=== PATIENT | female | born 1985 | race Caucasian/White ===

== ENCOUNTER 2024-05-31 05:50 | Inpatient (IN) | payer OTHER ==
[2024-06-04] MEDS: DEXTROSE 5%-LACTATED RINGERS 1,000 ML IV SCH (08:45)
[2024-06-04] MEDS: CITRIC ACID/SODIUM CITRATE 30 ML UNIT-DOSE CUP PO ONE (09:10)
[2024-06-04 09:38] VITALS: BMI 26.5
[2024-06-04 10:09] LABS: BASO % 0.3 % (0-2.0); HEMATOCRIT 26.9 % (32.4-45.2); HEMOGLOBIN 8.5 GM/dL (10.7-15.3); MCH 24.3 pg (25.7-33.7); MCHC 31.5 g/dl (32.0-36.0); MEAN CELL VOLUME 77.3 fl (80-96); MEAN PLT VOLUME 8.3 fl (7.5-11.1); MONO % 6.8 % (3.8-10.2); NEUT % 71.9 % (42.8-82.8); PLATELET COUNT 249 10^3/uL (134-434); RBC 3.48 M/mm3 (3.60-5.2); RDW 17.9 % (11.6-15.6); WHITE BLOOD COUNT 8.5 K/mm3 (4.0-10.0)
[2024-06-04 10:27] LABS: INR 0.89 (0.83-1.09); PROTHROMBIN TIME (PATIENT) 10.1 SEC (9.7-13.0)
[2024-06-04 10:28] LABS: POTASSIUM 4.1 mmol/L (3.5-5.1)
[2024-06-04 10:29] LABS: CALCIUM 9.4 mg/dL (8.5-10.1)
[2024-06-04 10:30] LABS: ACTIVATED PTT 25.3 SECONDS (25.2-36.5); BLOOD UREA NITROGEN 6.7 mg/dL (7-18)
[2024-06-04 10:33] LABS: CREATININE 0.5 mg/dL (0.55-1.3)
[2024-06-04] MEDS ORDERED: ceFAZolin SODIUM 1 GM VIAL ONE (10:56)
[2024-06-04] MEDS ORDERED: ONDANSETRON 4 MG/2 ML VIAL ONE (10:57)
[2024-06-04] MEDS ORDERED: morphine SULFATE (PF) 1 MG/2 ML SYRINGE ONE (10:57)
[2024-06-04] MEDS ORDERED: KETOROLAC TROMETHAMINE 30 MG/1 ML VIAL ONE (10:57)
[2024-06-04] MEDS ORDERED: OXYTOCIN 10 UNITS/ML VIAL ONE (10:57)
[2024-06-04] MEDS ORDERED: FENTANYL CITRATE/PF 50 MCG/ML VIAL ONE (10:57)
[2024-06-04 12:28] LABS: CORD BASE EXCESS -1.7 mmol/L (0-2); CORD HCO3 24.6 mmHg (20-29); CORD PCO2 47.1 mmHg (30-78); CORD pH 7.335 (7.14-7.44)
[2024-06-04 12:29] LABS: CORD HCO3 21.1 mmHg (20-29); CORD PCO2 68.6 mmHg (30-78); CORD pH 7.105 (7.14-7.44)
[2024-06-04] MEDS ORDERED: ONDANSETRON 4 MG/2 ML VIAL IVPUSH PRN (12:34)
[2024-06-04] MEDS: OXYTOCIN 20 UNITS in 0.9% NS 20 UNIT/1,000 ML INFUS.BAG IV SCH (13:56)
[2024-06-04] MEDS: ACETAMINOPHEN INJECTION 100 ML IVPB PRN (15:57)
[2024-06-05 08:24] LABS: BASO % 0.2 % (0-2.0); EOS % 0.3 % (0-4.5); HEMATOCRIT 23.5 % (32.4-45.2); HEMOGLOBIN 7.2 GM/dL (10.7-15.3); LYMPH % 19.5 % (8-40); MCHC 30.7 g/dl (32.0-36.0); MEAN CELL VOLUME 78.3 fl (80-96); MEAN PLT VOLUME 8.8 fl (7.5-11.1); MONO % 5.9 % (3.8-10.2); NEUT % 74.1 % (42.8-82.8); PLATELET COUNT 235 10^3/uL (134-434); WHITE BLOOD COUNT 10.2 K/mm3 (4.0-10.0)
[2024-06-05] MEDS: oxyCODONE HCL 5 MG TABLET PO PRN (14:55)
[2024-06-05] MEDS: SIMETHICONE 80 MG TAB.CHEW (FP) PO PRN (14:55)
[2024-06-05] MEDS: IBUPROFEN 600 MG TABLET (FP) PO PRN (15:49)
[2024-06-05] MEDS: ACETAMINOPHEN 325 MG TABLET (FP) PO PRN (16:59)
[2024-06-05] MEDS: DOCUSATE SODIUM 100 MG CAPSULE (FP) PO PRN (21:14)
[2024-06-05] MEDS: FAMOTIDINE 10 MG TABLET PO SCH (21:14)
[2024-06-06] MEDS: FERROUS SO4 325 MG TABLET (FP) PO SCH (09:20)
[2024-06-07 08:47] LABS: BASO % 0.3 % (0-2.0); EOS % 2.1 % (0-4.5); HEMATOCRIT 22.6 % (32.4-45.2); HEMOGLOBIN 7.1 GM/dL (10.7-15.3); LYMPH % 18.7 % (8-40); MCH 24.9 pg (25.7-33.7); MCHC 31.5 g/dl (32.0-36.0); MEAN CELL VOLUME 78.9 fl (80-96); MEAN PLT VOLUME 8.7 fl (7.5-11.1); MONO % 6.7 % (3.8-10.2); NEUT % 72.2 % (42.8-82.8); PLATELET COUNT 253 10^3/uL (134-434); RBC 2.87 M/mm3 (3.60-5.2); RDW 18.6 % (11.6-15.6); WHITE BLOOD COUNT 7.1 K/mm3 (4.0-10.0)
[2024-06-08 11:45] VITALS: BP 100/61; PULSE 84; RESP 17; TEMP 97.8
== END 2024-06-08 14:00 | disposition home or self-care (01) | DRG 540 ==
LOC: JLDR 05:50 → UNDOADMIN 05:50 → JLDR 06-04 08:19 → J3W 06-04 15:10
PROVIDERS: ADMIT Obstetrics & Gynecology Maternal & Fetal Medicine; ATTEND Obstetrics & Gynecology Maternal & Fetal Medicine
PROC: 10D00Z1 Extraction of Products of Conception, Low, Open Approach (ICD-10-PCS; principal; 2024-06-04)
DX: O34.219 Maternal care for unspecified type scar from previous cesarean delivery (principal); Z3A.37 37 weeks gestation of pregnancy; O99.02 Anemia complicating childbirth; D64.9 Anemia, unspecified; K44.9 Diaphragmatic hernia without obstruction or gangrene; Z37.0 Single live birth
CPT/HCPCS: 36415; 36600; 59409; 80048; 82803; 85025; 85610; 85730; 86780; 86850; 86900; 86901; 88307-TC; 94010; J0131